=== PATIENT | male | born 1975 | race Caucasian/White ===

== ENCOUNTER 2025-05-03 16:15 | Outpatient (CLI) | payer MEDICAID, SELFPAY ==
--- NOTE | 2025-05-03 16:18 | XR_ITS ---
FINAL REPORT CLINICAL HISTORY: SOB,WT loss COMPARISON: None FINDINGS: PA and lateral views of the chest were obtained. No acute pulmonary density is evident. There is no evidence of effusion or other pleural disease. The mediastinum has a normal appearance. The cardiac silhouette is unremarkable. IMPRESSION: Unremarkable chest exam. Reviewed, Interpreted and Dictated by Stella Brewer MD Transcribed by Faviola Heath Authenticated and [facility]
[2025-05-03 17:03] LABS: Hematocrit 48.3 % (42.0-52.0); Hemoglobin 16.1 g/dL (14.1-18.0); Immature Granulocytes % 0.4 %; Mean Corpuscular HGB Conc 33.3 g/dL (31.8-35.4); Mean Corpuscular Hemoglobin 29.2 pg (27.0-31.2); Mean Corpuscular Volume 87.5 fl (80-94); Nucleated Red Blood Cells % 0 %; Platelet Count 266 K/mm3 (142-424); Red Blood Count 5.52 M/mm3 (4.60-6.20); Red Cell Distribution Width-SD 40.9 fL; White Blood Count 10.4 K/mm3 (4.8-10.8)
[2025-05-03 17:24] LABS: Alanine Aminotransferase 30 U/L (12-78); Albumin Level 4.9 g/dl (3.5-5.0); Alkaline Phosphatase 79 U/L (38-126); Anion Gap 15.4 mEq/L (5-15); Aspartate Amino Transferase 34 U/L (17-59); Bilirubin,Direct 0.2 mg/dl (0.0-0.4); Bilirubin,Indirect 0.8 mg/dL (0.0-0.9); Bilirubin,Total 1.0 mg/dl (0.2-1.3); Bilirubin,Unconjugated 0.8 mg/dL (0.0-1.1); Blood Urea Nitrogen 13 mg/dl (9-20); Calcium 9.6 mg/dl (8.4-10.2); Carbon Dioxide 21 mmol/L (22.0-30.0); Chloride 104 mmol/L (98-107); Cholesterol 204 mg/dl (140-200); Creatinine,Serum 0.90 mg/dl (0.66-1.25); Estimated Glomerular Filt Rate 90 ml/min (>60); GFR (African American) 109 ML/MIN (>60); Glucose 114 mg/dl (74-100); HDL Cholesterol 42 mg/dl (40-60); Magnesium 2.0 mg/dl (1.6-2.3); Potassium 4.4 mmoL/L (3.5-5.1); Sodium 136 mmol/L (136-145); Total Protein,Serum 7.6 g/dl (6.3-8.2); Triglycerides 99 mg/dl (30-150)
[2025-05-03 17:35] LABS: NT Pro Brain Natriuretic Pep. 453 pg/mL (0-125)
[2025-05-03 17:43] LABS: Free T4 (Free Thyroxine) 1.49 ng/dl (0.78-2.19)
[2025-05-03 17:57] LABS: Thyroid Stimulating Hormone 0.73 uIU/mL (0.465-4.68)
[2025-05-05 08:33] LABS: Testosterone,Total 154 ng/dL (264-916)
== END 2025-05-03 23:59 | disposition home or self-care (01) ==
LOC: LAB 16:29
PROVIDERS: Visit Provider Internal Medicine
DX: R94.31 Abnormal electrocardiogram [ECG] [EKG] (principal); R14.0 Abdominal distension (gaseous); R19.5 Other fecal abnormalities; R63.4 Abnormal weight loss; R06.02 Shortness of breath; R53.83 Other fatigue
CPT/HCPCS: 36415; 71046; 80048; 80061; 80076; 83735; 83880; 84402; 84403; 84439; 84443; 85025

== ENCOUNTER 2025-05-16 09:00 | Outpatient (CLI) | payer MEDICAID, SELFPAY ==
[2025-05-17 11:19] LABS: Testosterone,Total 437 ng/dL (264-916)
== END 2025-05-16 23:59 | disposition home or self-care (01) ==
LOC: LAB.DROPOF 05-17 09:45
PROVIDERS: PCP Internal Medicine; Visit Provider Internal Medicine
DX: R79.89 Other specified abnormal findings of blood chemistry (principal)
CPT/HCPCS: 36415; 84403

== ENCOUNTER 2025-05-19 10:02 | Outpatient (CLI) | payer MEDICAID, SELFPAY ==
--- NOTE | 2025-05-19 10:15 | CA_ITS ---
APPROVED REPORT EXAM: Comprehensive 2D, Doppler, and color-flow Echocardiogram Scratcher: Jody Fall CRT Ht: 6 ft 0 in Wt: 221lbs BSA: 2.22 BP: 138/89 mmHg Indications: Abnormal ECG, Shortness of Breath, Fatigue, Hypertension/HDD 2D Dimensions LA Volume 66.60 mL LA Volume Index 29.20 mL/m2 (M/F) 16-34 M-Mode Dimensions RVDd 3.55 cm (0.9-2.6) LA Diam 4.60 cm (1.9-4.0) LVDd 4.92 cm (3.5-5.7) LVDs 3.55 cm (3.5-5.7) IVSd 1.40 cm (0.6-1.1) PWd 1.29 cm (0.6-1.1) EF (Teich) 53.80% FS 27.80% EDV (Teich) 113.90 mL TAPSE 2.02 (<1.7) ESV (Teich) 52.60 mL LV Diastology E Decel Time 170 (160-240 msec) E/A Ratio 1.03 MED A' 6.00 cm/s LAT A' 9.70 cm/s Aortic Valve AO Peak GR. 9.00 mmHg Mitral Valve MV A Velocity 66.0 (40-130 cm/s) E/A Ratio 1.03 Pulmonary Valve PV Peak Velocity 85.0 (50-150 cm/s) Tricuspid Valve TR P. Velocity 204.00 cm/s RAP Estimate 10.00 mmHg RVSP 26.70 mmHg Left Ventricle The left ventricle is normal size. Left ventricular systolic function is normal. The left ventricular ejection fraction is within the normal range. There is normal left ventricular wall thickness. There is normal LV segmental wall motion. The left ventricular diastolic function is normal. LVEF is 55% Right Ventricle The right ventricle is normal size. The right ventricular systolic function is normal. Atria The left atrium size is normal. The right atrium size is normal. There is no color Doppler evidence of interatrial shunt. Aortic Valve The aortic valve opens well. There is no hemodynamically significant aortic valvular stenosis. No aortic regurgitation is present. Mitral Valve The mitral valve is normal in structure. No evidence of mitral valve stenosis. Trace mitral regurgitation is present. Tricuspid Valve The tricuspid valve leaflets are thin and pliable. Trace tricuspid regurgitation. There is insufficient TR jet to estimate RVSP. Pulmonic Valve The pulmonary valve is grossly normal in structure. Trace pulmonic valve regurgitation is present. Great Vessels The aortic root is normal in size. IVC is normal in size and collapses >50% with inspiration. Pericardium There is no pericardial effusion. Other Information Study Quality: Adequate Conclusion Normal biventricular systolic function. No significant valvular stenosis or regurgitation. Electronically signed by : Shira Rahman MD 05/20/2025 23:49:42
== END 2025-05-19 23:59 | disposition home or self-care (01) ==
LOC: RT 10:03
PROVIDERS: PCP Internal Medicine; Visit Provider Internal Medicine
DX: R06.02 Shortness of breath (principal); R94.31 Abnormal electrocardiogram [ECG] [EKG]; R53.83 Other fatigue; I10 Essential (primary) hypertension
CPT/HCPCS: 93306

== ENCOUNTER 2025-05-23 10:42 | Outpatient (CLI) | payer MEDICAID, SELFPAY ==
[2025-05-23 10:55] VITALS: BP 150/93; BP 220/100; PULSE 71; RESP 14
--- NOTE | 2025-05-23 11:00 | CA_ITS ---
APPROVED REPORT Exam: Exercise Treadmill Technologist: Chelle Gay Stress Nurse: Venecia Guardado Ht: 6 ft 0 in Wt: 221 lbs BSA: 2.22 m2 HR: 71 bpm BP: 150/93 mmHg Stress Test Details Test: Exercise stress testing was performed using a Rodrigo protocol. HR Resting HR: 71 bpm Max Heart Rate (APMHR): 170.872001 bpm Max HR Achieved: 167 bpm Target HR (85% APMHR): 144.680584 bpm % of APMHR: 98.24 Recovery HR: 99 bpm BP Resting BP: 150.0/93.0 mmHg Max BP: 220.0/100.0 mmHg Recovery BP: 165.0/96.0 mmHg ECG Resting ECG: Sinus rhythm Stress ECG Conclusion Symptoms: None Arrhythmias/Ectopy: PAC/PVC/ventricular couplet ST-T Changes: 0.5 mm flattening, downsloping ST segment depression - exagerated ST abnormalities. Conclusion: Morgan treadmill score +9. Hypotensive response. Electronically signed by : Shira Rahman MD 05/24/2025 22:56:21
== END 2025-05-23 23:59 | disposition home or self-care (01) ==
LOC: RT 10:42
PROVIDERS: PCP Internal Medicine; Visit Provider Nurse Practitioner Family
DX: I49.1 Atrial premature depolarization (principal); I49.3 Ventricular premature depolarization; R94.31 Abnormal electrocardiogram [ECG] [EKG]; R53.83 Other fatigue
CPT/HCPCS: 93017; 93018

== ENCOUNTER 2025-06-26 09:20 | Day surgery (SDC) | payer MEDICAID, SELFPAY ==
[2025-06-21 10:34] VITALS: BMI 29.5
--- NOTE | 2025-06-23 15:24 | EXP.HP ---
History of Present Illness *Admission Date: 06/26/25 *History of present illness: Mr. Tolliver is a 50-year-old gentleman who is here for screening colonoscopy. The examination is deemed medically necessary for screening colonoscopy. The patient has been seen, interviewed and examined prior to the procedure by both myself and the anesthesia provider. [facility] Disclaimer: The information contained in this section may have been updated after the patient was seen, as this information can be updated by other users. Medical History Hypertension Flatulence/gas pain/belching Change in stool Unintentional weight loss Abnormal ECG SOB (shortness of breath) Fatigue Asthma Surgical History Hx of arthroscopic knee surgery Hx of hernia repair Family History Grandfather Heart attack Social History Smoking Status: Current every day smoker alcohol intake: current substance use type: denies use current occupational status: employed Travel in the last 8 weeks?: Inside the [place] Other Medical History Have you received the Flu Vaccine for this season: No Have you received the Pneumonia Vaccine: No Review of Systems Review of Systems Review of systems (narrative): Negative *Cardiovascular Comments: Negative *Gastrointestinal Comments: Negative *Genitourinary Comments: Negative *Musculoskeletal Comments: Negative *Neurologic Comments: Negative Meds Home Medications and Allergies Home Medications ?Medication ?Instructions ?Recorded ?Confirmed ?Type amlodipine 10 mg tablet 10 mg PO DAILY #30 tabs 05/16/25 06/26/25 Rx New Prescriptions to Start Prescriptions: Allergies Allergy/AdvReac Type Severity Reaction Status Date / Time azithromycin Allergy Other Verified 06/26/25 10:14 Opioids - Morphine Analogues AdvReac Mild Agitated Verified 06/26/25 10:14 Exam Data for Last 24 hours I & O for Last 24 hours: Intake & Output 06/20/25 06/21/25 06/22/25 06/23/25 23:59 23:59 23:59 23:59 Weight 218 lb *Routine HEENT Exam Head: Present normocephalic Eye: Present EOMI and PERRL ENT: Present mucous membranes moist *Routine Neck Exam Neck: Present supple *Routine Respiratory Exam Respiratory: Present CTA bilaterally *Routine Cardiovascular Exam Cardiovascular: Present RRR *Routine Abdominal Exam Abdominal: Present soft and normoactive bowel sounds; Absent tenderness *Routine Rectal Exam Rectal:: deferred *Routine Genitalia Exam Genitalia:: deferred *Routine Extremities Exam Extremities: Absent cyanosis, clubbing or edema *Routine Skin Exam Skin: Present warm; Absent rash *Routine Neurological Exam Neurological: Present alert and oriented X3 Assessment and Plan *Assessment and plan (1) Screening for colorectal cancer: Status: Acute Category: Medical Code(s): Z12.11 - Encounter for screening for malignant neoplasm of colon; Z12.12 - Encounter for screening for malignant neoplasm of rectum (2) Flatulence/gas pain/belching: Status: Acute Category: Medical Code(s): R14.0 - Abdominal distension (gaseous) (3) Change in stool: Status: Acute Category: Medical Code(s): R19.5 - Other fecal abnormalities (4) Unintentional weight loss: Status: Acute Category: Medical Code(s): R63.4 - Abnormal weight loss Plan A/P: 1. Screening for colon cancer is the preprocedural diagnosis. The patient does have a lot of flatulence, belching, gas pain and change in stool caliber. The patient will be anesthetized/sedated using MAC sedation. The patient has been seen and examined. Cardiac and lung assessment prior to the examination is stable. Proceed with planned colonoscopy.
--- NOTE | 2025-06-26 07:02 | P.PCN_ITS ---
[facility] Procedure Note Date: 06/26/25 Time: 10:59 Procedure Note:: Colonoscopy Procedure Report: Colonoscopy with cold snare polypectomy Endoscopist: Rudy Verma II, MD Referring physician: Jonah Barraza DO Date of Procedure: June 26, 2025 Equipment: Olympus [id number] adult colonoscope Sedation: MAC sedation Indication: Mr. Tolliver is a 50-year-old gentleman who is here for initial screening colonoscopy. The patient reports no abdominal pain, weight loss, change in his bowel habits or family history of colon cancer. He does have some occasional spotting of blood on the tissue from hemorrhoids. The examination is deemed medically necessary for screening colonoscopy. Procedure: Prior to the procedure, a history and physical exam was performed, and patient's medications and allergies were reviewed. The risks, benefits and alternatives of the sedation and procedure were discussed with the patient. All questions were answered and informed consent was obtained. The patient was brought to the procedure room. Patient identification and proposed procedure were verified by the physician and the nurse. The patient was placed in a left lateral decubitus position and the scope was passed under direct vision. Throughout the procedure, the patient's blood pressure, pulse, and oxygen saturations were monitored continuously. The colonoscopy was accomplished without difficulty. The patient tolerated the procedure well. Findings: On digital rectal examination there was normal rectal tone. There were no external hemorrhoids. The prostate was 2+, smooth, soft, symmetric without nodules. The colonoscope was introduced through the anal canal to the rectum and advanced to the cecum. The ileocecal valve and appendiceal orifice were identified. The scope was advanced a short distance into the ileum which appeared grossly normal. The scope was then withdrawn into the colon. There were 2 diminutive polyps in the transverse colon (3 and 3 mm) which were both removed via cold snare polypectomy. The remaining cecum, ascending, transverse, descending, sigmoid and rectum were grossly normal. There were no other mucosal abnormalities identified. Upon retroflexion within the rectum there were grade 2 internal hemorrhoids. The preparation was excellent throughout with [place] Preparation Score of 9. The cecal time was 12 minutes. Impression: 1. Diminutive colonic polyps x 2 (3 and 3 mm) Plan: I will follow-up the polyp histology and recommend repeat screening/surveillance colonoscopy again in 7 to 10 years based upon the pathology.
[2025-06-26 10:15] VITALS: BP 172/88; PULSE 64; RESP 18; TEMP 36.3; O2SAT 98
[2025-06-26] MEDS: LACTATED RINGERS 1000ML 1,000 ML 50 ML IV (10:21)
--- NOTE | 2025-06-26 10:35 | P.PNANES_ITS ---
[facility] Disclaimer: The information contained in this section may have been updated after the patient was seen, as this information can be updated by other users. Medical History Hypertension Flatulence/gas pain/belching Change in stool Unintentional weight loss Abnormal ECG SOB (shortness of breath) Fatigue Asthma Surgical History Hx of arthroscopic knee surgery Hx of hernia repair Family History Grandfather Heart attack Social History Smoking Status: Current every day smoker alcohol intake: current substance use type: denies use current occupational status: employed Travel in the last 8 weeks?: [place] [facility] Anesthesia Checklist Patient Identification Patient Identification: Arm Band and Verbal (Name & ) Structural Data Admitted From: Home Planned Operative Procedure/s: Colonoscopy Consent for Planned Operative Procedure(s) Verified: Yes Verified Documents: Surgical Consent NPO Status Verified Time NPO: 00:00 Additional verifications Anesthesia Reactions: No Airway Assessment Mallampati Score:: Class II C-Spine Mobility Assessed: Yes TMJ Mobility Assessed: Yes Dentition: Good Dentition Neurological Assessment Level of Consciousness: Awake, Alert and Appropriate Hx Seizures: No Numbness or tingling in extremities: No Anesthesia Plan Anesthesia Risk discussed: Yes Anesthesia Plan: Verified ASA Class: II Anesthesia Type: MAC
[2025-06-26 10:59] VITALS: BP 110/63; PULSE 69; RESP 18; TEMP 36.3; O2SAT 98
[2025-06-26 11:14] VITALS: BP 97/66; PULSE 62; RESP 18; TEMP 36.3; O2SAT 99
[2025-06-26 11:29] VITALS: BP 141/77; PULSE 62; RESP 18; TEMP 36.3; O2SAT 100
== END 2025-06-26 11:58 | disposition home or self-care (01) ==
PROVIDERS: PCP Internal Medicine; Visit Provider Internal Medicine Gastroenterology
PROC: 0DJD8ZZ Inspection of Lower Intestinal Tract, Via Natural or Artificial Opening Endoscopic (ICD-10-PCS; CPT 45378; principal; 2025-06-26 11:00)
DX: Z12.11 Encounter for screening for malignant neoplasm of colon (principal); D12.3 Benign neoplasm of transverse colon; K64.1 Second degree hemorrhoids; F17.200 Nicotine dependence, unspecified, uncomplicated; I10 Essential (primary) hypertension; Z88.1 Allergy status to other antibiotic agents; Z88.5 Allergy status to narcotic agent
CPT/HCPCS: 45385; J2003; J2704; J7120